=== PATIENT | female | born 1960 ===

== ENCOUNTER 2020-04-18 06:00 | Outpatient (RCR) | payer BC, SELFPAY | END 2020-05-16 23:59 | disposition home or self-care (01) | LOC: MOT 06:00 | PROVIDERS: PCP Family Medicine; Referring Provider Family Medicine; Visit Provider Family Medicine | DX: Z74.09 Other reduced mobility (principal) | CPT/HCPCS: 97167; 97542 ==

== ENCOUNTER 2021-11-29 10:53 | Outpatient (CLI) | payer BC, SELFPAY ==
--- NOTE | 2021-11-29 11:14 | MM_ITS ---
WS: [id number] BILATERAL SCREENING 3D TOMOSYNTHESIS DIGITAL MAMMOGRAM WITH CAD HISTORY: SCREENING COMPARISON: 05/05/2019 Bilateral CC and MLO views submitted. Computer aided detection analyzed. Quality of this examination is compromised by patient's immobility. Breasts are incompletely included on this examination. Breast composition: There are scattered areas of fibroglandular density. No suspicious masses, microc alcifications or architectural distortion. MM/[id number] IMPRESSION: BI-RADS: 1-Negative FOLLOW UP: 1 Year Follow-up
== END 2021-11-29 10:54 | disposition home or self-care (01) ==
LOC: RAD 11:00
PROVIDERS: PCP Family Medicine; Visit Provider Family Medicine
DX: Z12.31 Encounter for screening mammogram for malignant neoplasm of breast (principal)
CPT/HCPCS: 77063; 77067

== ENCOUNTER 2022-07-18 07:56 | Outpatient (CLI) | payer BC, SELFPAY ==
--- NOTE | 2022-07-18 08:22 | USCV_ITS ---
Modesta Pratt Age: 61 Gender: F : 1960 Exam Date: 07/18/2022 08:37 Ordering Phys: Joe Galvez XX Technologist: Exam Location: [facility] [place] Indication: murmur chf BP: 121 / 71 HR: 78 Rhythm: Sinus Technical Quality: Technically difficult study MEASUREMENTS (Male / Female) Normal Values 2D ECHO LV Diastolic Diameter PLAX 2.0 cm 4.2 - 5.9 / 3.9 - 5.3 cm LV Systolic Diameter PLAX 1.8 cm IVS Diastolic Thickness 1.1 cm 0.6 - 1.0 / 0.6 - 0.9 cm IVS Systolic Thickness 1.4 cm LVPW Diastolic Thickness 0.9 cm 0.6 - 1.0 / 0.6 - 0.9 cm LVPW Systolic Thickness 1.5 cm LVOT Diameter 2.1 cm LV Ejection Fraction 2D Teich 5.4 % LV Ejection Fraction MOD 2C 68.0 % LV Ejection Fraction 2C AL 70.4 % LA Diameter 3.4 cm M-MODE Aortic Annulus Diameter 3.4 cm LA Ao Ratio MM 1.2 MV E Point Septal Separation 0.9 cm DOPPLER AV Peak Velocity 152.0 cm/s LVOT Peak Velocity 79.0 cm/s AV Area Cont Eq vti 1.9 cm squared AV Area Cont Eq pk 1.9 cm squared MV Area PHT 5.0 cm squared Mitral E to A Ratio 0.9 MV E' Velocity 47.0 cm/s Mitral E to MV E' Ratio 13.6 Mitral E to LV E' Lateral Ratio 11.0 Mitral E to LV E' Septal Ratio 17.9 TR Peak Velocity 440.3 cm/s TR Peak Gradient 77.6 mmHg TV Peak E Velocity 308.0 cm/s Right Atrial Pressure 3.0 mmHg Pulmonary Artery Systolic Pressu 80.6 mmHg FINDINGS Left Ventricle Left ventricle is normal in size. LV systolic function is normal with EF 55 to 60%. No regional wall motion abnormalities are seen. Grade 1 diastolic dysfunction Right Ventricle Grossly RV appears to be enlarged and hypokinetic Right Atrium Not well visualized Left Atrium Normal in size Mitral Valve Structurally normal mitral valve. No significant stenosis or regurgitation is seen. Aortic Valve Not well visualized. No significant stenosis or regurgitation Tricuspid Valve Not well visualized. Mild tricuspid regurgitation. RVSP is more than 60 mmHg. This is consistent with severe pulmonary hypertension. Pulmonic Valve Not well visualized Pericardium Normal Aorta Normal in size IVC Not well visualized CONCLUSIONS Technically limited quality echocardiogram because of poor ultrasonic windows. LV systolic function is normal with EF of 55 to 60%. Grade 1 diastolic dysfunction. Grossly RV appears to be enlarged and hypokinetic. Mild tricuspid regurgitation. Severe pulmonary hypertension. No comparison studies are available Antonio Pennington MD (Electronically Signed) Final Date: 04 August 2022 08:32 S
== END 2022-07-18 07:57 | disposition home or self-care (01) ==
PROVIDERS: PCP Family Medicine; Visit Provider Family Medicine
DX: R01.1 Cardiac murmur, unspecified (principal); I50.9 Heart failure, unspecified; I27.20 Pulmonary hypertension, unspecified; I07.1 Rheumatic tricuspid insufficiency
CPT/HCPCS: 87070; 93306

== ENCOUNTER 2022-12-11 11:22 | Outpatient (CLI) | payer BC, SELFPAY ==
--- NOTE | 2022-12-11 11:32 | MM_ITS ---
WS: [id number] BILATERAL SCREENING DIGITAL TOMOSYNTHESIS MAMMOGRAM WITH CAD HISTORY: SCREENING COMPARISON: 11/29/2021 and 05/05/2019 Bilateral CC and MLO views with tomosynthesis and synthetic mammography submitted. Computer aided det ection analyzed. Breast composition: There are scattered areas of fibroglandular density. No suspicious masses, microc alcifications or architectural distortion. MM/[id number] IMPRESSION: BI-RADS: 1-Negative FOLLOW UP: 1 Year Follow-up
== END 2022-12-11 11:23 | disposition home or self-care (01) ==
LOC: RAD 11:28
PROVIDERS: PCP Family Medicine; Visit Provider Family Medicine
DX: Z12.31 Encounter for screening mammogram for malignant neoplasm of breast (principal)
CPT/HCPCS: 77063; 77067

== ENCOUNTER → 2023-02-05 13:13 | Outpatient (BNVA) | payer BC, SELFPAY | PROVIDERS: PCP Family Medicine; Visit Provider Internal Medicine Pulmonary Disease | DX: R06.02 Shortness of breath (principal); J30.2 Other seasonal allergic rhinitis | CPT/HCPCS: 36415; 82785; 85025; 86003 ==

== ENCOUNTER → 2023-02-10 15:04 | Outpatient (BNVA) | payer BC, SELFPAY | PROVIDERS: PCP Family Medicine; Visit Provider Nurse Practitioner Family | DX: I96 Gangrene, not elsewhere classified (principal); L97.822 Non-pressure chronic ulcer of other part of left lower leg with fat layer exposed; L97.812 Non-pressure chronic ulcer of other part of right lower leg with fat layer exposed | CPT/HCPCS: 87070; 87077; 87186 ==

== ENCOUNTER 2023-02-23 13:12 | Outpatient (CLI) | payer BC, SELFPAY ==
--- NOTE | 2023-02-23 13:30 | USCV_ITS ---
Modesta Pratt Age: 62 Gender: F : 1960 Exam Date: 02/23/2023 13:52 Ordering Phys: Ashly Ballard NP Technologist: ALBA Exam Location[place] [facility] [place]: HISTORY: PROCEDURES: FINDINGS: The veins were found to be easily compressible with spontaneous blood flow. Non pulsatile flow pattern. No notable reflux was seen at this time. Multiple echo lucencies in the subcutaneous tissue CONCLUSIONS No evidence of DVT in the above-mentioned identifiable veins. No significant venous reflux were noted either in the deep or superficial veins. Features of fluid retention/edema bilaterally in the lower extremities Dr Edna Santos MD [facility] (Electronically Signed) Final Date: 23 February 2023 19:27 S
== END 2023-02-23 13:13 | disposition home or self-care (01) ==
PROVIDERS: PCP Family Medicine; Visit Provider Nurse Practitioner Family
DX: L97.801 Non-pressure chronic ulcer of other part of unspecified lower leg limited to breakdown of skin (principal)
CPT/HCPCS: 93970

== ENCOUNTER 2023-03-02 11:55 | Outpatient (CLI) | payer BC, SELFPAY ==
--- NOTE | 2023-03-02 12:15 | USCV_ITS ---
Modesta Pratt Age: 62 Gender: F : 1960 Exam Date: 03/02/2023 12:49 Ordering Phys: Ashly Ballard NP Technologist: CT Exam Location: [facility] – [place] Indication: le ulcers Risk Factors: Previous Vascular Surgery: RIGHT LEFT BP: 105.0 / 67.00 BP: 100.0/ 70.00 0 0 Waveform Velocity (cm/s) Velocity (cm/s) Waveform Triphasic 94.0 Iliac Prox 82.9 Triphasic Triphasic 80.3 Iliac Mid 74.3 Triphasic Triphasic 73.5 Iliac Distal 78.6 Triphasic Triphasic 50.4 HALL CLEANER 54.7 Triphasic Triphasic 124.9 SFA Prox 73.6 Triphasic Triphasic 123.6 SFA Mid 89.5 Triphasic Triphasic SFA Dist Triphasic 103.9 73.4 Triphasic 70.1 POP 60.0 Triphasic Triphasic 86.3 SPRAY BLENDER 60.3 Triphasic Biphasic 45.4 DPA 54.6 Biphasic 1.0 MAURICE 1.0 FINDINGS Resting MAURICE 1.4 the right and 1.2 on the left Normal/near normal arterial Doppler waveforms bilaterally Normal arterial Doppler flow velocities Intimal thickening and minimal plaque in the iliac and femoral arteries bilaterally CONCLUSIONS No evidence of any significant arterial obstruction, based on the above findings. Intimal thickening and minimal plaques in the iliac and femoral arteries Dr Edna Santos MD [facility] (Electronically Signed) Final Date: 02 March 2023 20:08 S
== END 2023-03-02 11:56 | disposition home or self-care (01) ==
PROVIDERS: PCP Family Medicine; Visit Provider Nurse Practitioner Family
DX: L97.821 Non-pressure chronic ulcer of other part of left lower leg limited to breakdown of skin (principal); L97.811 Non-pressure chronic ulcer of other part of right lower leg limited to breakdown of skin
CPT/HCPCS: 93925

== ENCOUNTER 2023-03-05 12:09 | Outpatient (CLI) | payer SELFPAY ==
--- NOTE | 2023-03-05 12:31 | XR_ITS ---
WS: [id number] Exam: XR foot LT min 3V* [id number] Date/Time of Exam: 03/05/2023 12:35 PM Reason For Exam: PAIN IN LEFT FOOT There is a nondisplaced fracture through the neck of the distal fifth metatarsal. No other acute frac tures are identified. There are moderately advanced degenerative changes of the mid and hindfoot join ts with collapse the plantar arch. 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 No soft tissue foreign bodies. Calcaneal spurs. XR/XR foot LT min 3V* [id number] IMPRESSION: 1. Nondisplaced fracture of the neck of the distal fifth metacarpal tarsal. 2. Moderately advanced degenerative changes of the foot especially the midfoot and hindfoot joints. Collapse of the plantar arch. The possibility of changes related to Charcots arthropathy might be considered.
== END 2023-03-05 12:10 | disposition home or self-care (01) ==
LOC: RAD 12:12
PROVIDERS: PCP Family Medicine; Visit Provider Nurse Practitioner Family
DX: S62.367A Nondisplaced fracture of neck of fifth metacarpal bone, left hand, initial encounter for closed fracture (principal); X58.XXXA Exposure to other specified factors, initial encounter; R93.6 Abnormal findings on diagnostic imaging of limbs
CPT/HCPCS: 73630